=== PATIENT | female | born 1990 | race Caucasian/White ===

== ENCOUNTER 2022-10-20 09:02 | Day surgery (SDC) | payer OTHER ==
[2022-10-16 15:52] VITALS: BMI 37.8
[2022-10-20] MEDS ORDERED: PROPOFOL 20 ML ONE ×2 (14:13)
[2022-10-20] MEDS ORDERED: Fentanyl 100 MCG/2 ML VIAL ONE (14:20)
== END 2022-10-20 15:00 | disposition home or self-care (01) ==
LOC: CSHSDC/OP 09:02
PROVIDERS: ATTEND Internal Medicine Gastroenterology
PROC: 0DJ08ZZ Inspection of Upper Intestinal Tract, Via Natural or Artificial Opening Endoscopic (ICD-10-PCS; principal; 2022-10-20)
DX: R10.13 Epigastric pain (principal); E66.9 Obesity, unspecified; R11.2 Nausea with vomiting, unspecified; F90.9 Attention-deficit hyperactivity disorder, unspecified type; G43.909 Migraine, unspecified, not intractable, without status migrainosus; F41.9 Anxiety disorder, unspecified; F32.A Depression, unspecified; Z79.899 Other long term (current) drug therapy; Z68.37 Body mass index [BMI] 37.0-37.9, adult
CPT/HCPCS: 76700; J2704; J3010